=== PATIENT | male | born 1950 | race Caucasian/White ===

== ENCOUNTER → 2016-11-12 10:04 | Outpatient (CLI) | payer MEDICARE, MEDICAID ==
[2016-06-18 14:33] VITALS: BMI 34.9
[~2016-11-12 10:04] MED LIST: ENULOSE10 G/15 ML PO
[2016-11-12 11:03] LABS: ALBUMIN 3.1 g/dL (3.4-5.0); BILIRUBIN - DIRECT 0.22 mg/dL (0.00-0.30); BILIRUBIN - INDIRECT 0.62 mg/dL (0.00-1.00); BILIRUBIN - TOTAL 0.84 mg/dL (0.2-1.3); PROTEIN - SERUM 6.7 g/dL (6.4-8.2)
[2016-11-12 11:10] LABS: BASOPHILS 0.4 % (0.0-2.0); EOSINOPHILS 1.9 % (0-7); HEMATOCRIT 38.3 % (42.0-54.0); HEMOGLOBIN 13.3 g/dL (13.5-17.5); IMMATURE GRANULOCYTES 0.2 % (0-5); LYMPHOCYTES 46.9 % (15-50); MCH 30.7 pg (26.0-34.0); MCHC 34.7 g/dL (31.0-37.0); MCV 88.5 fL (80.0-100.0); MEAN PLATELET VOLUME 11.6 fL (7.4-10.4); MONOCYTES 16.2 % (2-11); NEUTROPHILS 34.4 % (40-80); PLATELET COUNT 97 10x3/uL (130-400); RBC 4.33 10x6/uL (4.20-6.10); RDW 14.2 % (11.5-14.5); WBC 4.8 10x3/uL (4.8-10.8)
[2016-11-12 11:42] LABS: PLATELET ESTIMATE DECREASED
[2016-11-16 09:09] LABS: HCVGENO - HEP C QUANT HCV Not Detected IU/mL (())
== END | disposition home or self-care (01) ==
LOC: D.LAB 11-11 11:15
PROVIDERS: Internal Medicine Gastroenterology
DX: B18.2 Chronic viral hepatitis C (principal)

== ENCOUNTER 2017-02-17 07:55 | Outpatient (CLI) | payer MEDICARE, MEDICAID ==
[~2017-02-17] VITALS: Ht 180.3 cm; Wt 102.3 kg
--- NOTE | ~2017-02-17 | HEMODYNAMI ---
PATIENT:KYE VILLAFUERTE MEDICAL RECORD: [id number] : 54 LOCATION:D.OPS ADMISSION DATE: 02/17/17 Generatedon:02/17/201713:51 Patient name: KYE VILLAFUERTE Patient #: [id number] SSN: : 1950 Date of study: 02/17/2017 Page: Of Hemodynamic Procedure Report Patient Data Patient Demographics Procedure consent was obtained First Name: KYE Gender: Male Last Name: CHRISTO : 1950 [facility] Initial: ROMAN Age: 66 year(s) Patient #: [id number] Race: Unknown Additional ID: [id number] Contact details Address: [address] [place] [address] [place] State: [place] City: [place] Zip code: [address] Admission Admission Data Admission Date: 02/17/2017 Admission Time: 7:55 Weight (lbs.): 225 Weight (kg.): 102.06 Procedure Procedure Types Cath Procedure Peripheral Cath Diagnostic Procedure Cath Peripheral Liver TIPSS Revision Procedure Description Procedure Date Procedure Date: 02/17/2017 Procedure Start Time: 13:25 Procedure Staff Name Function Jeanette Guzman RT Healthcare Translator Jeanette Guzman RT Monitor Timothy Balbuena RT Scrub Neto Wells MD Performing Physician Gen De La Torre CRNA Additional personnel Princess Anaya RN Nurse Procedure Data Cath Procedure Fluoroscopy Diagnostic fluoroscopy Total fluoroscopy Time: 2.9 time: 2.9 min min Diagnostic fluoroscopy Total fluoroscopy dose: 517 dose: 517 mGy mGy Contrast Material Contrast Material Type Amount (ml) Isovue 300 75 Diagnostic catheters Device Type Used For End Catheter Placement Merit UHF Pigtail VESSEL SIZING 5Fr 65CM catheter Hemodynamics Rest Heart Rate: 50 (bpm) Pressure Samples Time Site Value (mmHg) Purpose Heart Use Rate(bpm) 13:40 Portal (17) Snapshot 50 13:43 RA 10/9(8) Snapshot 50 Snapshots Pre Cath Intra NCS Post Cath Procedure Log Time Note 12:34:35 Patient Weight : 225 kg 12:36:23 TUBING, CONTRAST INJCTN HI PRES opened to sterile field. 12:36:24 TUBING, CONTRAST INJCTN HI PRES opened to sterile field. 12:36:25 Terumo ANGLE 260cm glide wire opened to sterile field. 12:36:25 Cook OCAMPO 260 guide wire opened to sterile field. 12:36:26 PERCUTANEOUS ENTRY 19GA needle opened to sterile field. 12:36:30 KIT, TRANSJUGULAR LIVER ACCESS R opened to sterile field. 12:36:35 Use device set IR Diagnostic 12:36:36 Sterile Angiographic Pack opened to sterile field. 12:36:37 Bag Decanter opened to sterile field. 12:36:38 Acist Manifold opened to sterile field. 12:36:39 Acist Hand Control opened to sterile field. 12:36:40 Acist Syringe opened to sterile field. 12:42:27 Time tracking: Regular hours 12:44:37 Patient received from Outpatients to IR Alert and oriented. Tansferred to table in Supine position. 12:44:42 Correct patient and procedure confirmed by team. 12:44:46 Signed procedure consent form obtained from patient. 12:44:48 - 12:44:57 H&P Date Dictated: 02/17/2017 Within 30 days and on chart.. 12:44:59 Pre-procedure instructions explained to patient. 12:45:00 Pre-op teaching completed and patient verbalized understanding. 12:45:06 Family unavailable. 12:45:08 Patient NPO since Midnight. 12:45:20 - 12:45:51 see anesthesia notes for monitoring of patient during procedure 13:22:08 Physician arrived 13:22:31 Physical assessment completed. ASA score P 3 - A patient with severe systemic disease as per Gen De La Torre HUMAN FACTORS ERGONOMIST. 13:22:37 --------ALL STOP TIME OUT------ 13:22:38 Final Timeout: patient, procedure, and site verified with staff and physician. All members of the team are in agreement. 13:22:44 Sedation plan: General Anesthesia General Anesthesia 13:25:29 Procedure started. 13:25:30 Full Disclosure recording started 13:25:46 Local anesthetic to right IJ vein with Lidocaine 1% by Neto Wells MD.INITIAL ACCESS ONLY 13:31:14 Terumo 5FR Emergency Department Manager H1 100CM glide catheter opened to sterile field. 13:34:10 A Bookioo F Pigtail VESSEL SIZING 5Fr 65CM catheter was advanced over the wire and used for . 13:39:21 Zero performed for pressure channel P1 13:39:33 Zero performed for pressure channel P1 13:43:17 Zero performed for pressure channel P1 13:44:06 Procedure ended.(Physican Out) 13:46:15 Procedure and supply charges have been captured, reviewed, submitted an d are correct. 13:47:43 Full Disclosure recording stopped 13:50:31 Fluoroscopy time 02.90 minutes. 13:50:45 Fluoroscopy dose: 517 mGy 13:50:45 Flurop Dose total: 517 13:50:52 Contrast amount:Isovue 300 75ml. Device Usage Item Name Manufacture Quantity Catalog Hospital Part Current Minimal Lot# / Number Charge Number Stock Stock Serial# Code TUBING, Merit 2 [id number] 5 CONTRAST Medical INJCTN HI PRES Cook OCAMPO [employer] Medical 1 [id number] 351875 [id number] 5 [id number] 260 guide wire Terumo ANGLE Terumo 1 [id number] 194034 204910 018941 5 260cm glide wire PERCUTANEOUS [employer] 1 [id number] 798935 259336 5 ENTRY 19GA needle KIT, [employer] 1 [id number] 391407 [id number] 5 [id number] TRANSJUGULAR LIVER ACCESS R Sterile Cardinal 1 [id number] 213335 746113 5 Angiographic Health Pack Bag Decanter Microtek 1 2001S 869747 97796 797492 [employer] Acist Acist 1 43060 308731 029617 632513 5 [employer] Acist Hand Acist 1 26759 294775 047222 040650 5 Control [employer] Inc Acist Acist 1 28455 995780 173760 640675 20 Syringe [employer] Inc Terumo 5FR [place] 1 CG513 418449 069950 5 [facility] [place] H1 100CM glide catheter Merit [facility] Merit 1 [id number] 537052 591065 5 Pigtail Medical VESSEL SIZING 5Fr 65CM catheter Signature Audit [place] Stage Time Signature Unsigned Intra-Procedure 02/17/2017 Jeanette Aguirre [facility] RT 1:47:37 PM RT(R) (R) (CV) 02/17/2017 1:49:54 PM Intra-Procedure 02/17/2017 Jeanette Guzman 1:51:07 PM RT(R) Signatures Monitor : Jeanette Guzman RT Signature : Date : Time : [id number] [place] [address]
[2017-02-17 10:46] LABS: BASOPHILS 0.7 % (0-2); HEMATOCRIT 40.9 % (42.0-54.0); HEMOGLOBIN 14.1 g/dL (13.5-17.5); LYMPHOCYTES 41.5 % (15-50); MCH 30.9 pg (26.0-34.0); MCHC 34.5 g/dL (31.0-37.0); MCV 89.5 fL (80.0-100.0); NEUTROPHILS 46.8 % (40-80); PLATELET COUNT 93 10x3/uL (130-400); RBC 4.57 10x6/uL (4.20-6.10); RDW 13.6 % (11.5-14.5); WBC 4.6 10x3/uL (4.8-10.8)
[2017-02-17 11:08] LABS: APTT 33.8 SECONDS (22.8-39.4); INR 1.34 (0.85-1.17); PROTIME 16.5 SECONDS (11.6-15.0)
[2017-02-17 11:09] LABS: ALBUMIN 3.3 g/dL (3.4-5.0); ALKALINE PHOSPHATASE 77 U/L (46-116); ALT (SGPT) 32 U/L (10-68); BILIRUBIN - DIRECT 0.16 mg/dL (0.00-0.30); BILIRUBIN - TOTAL 1.06 mg/dL (0.2-1.3); CALC OSMOLALITY 280 mosm/kg (275-300); CALCIUM 8.9 mg/dL (8.5-10.1); CARBON DIOXIDE 25.4 mmol/L (21.0-32.0); CHLORIDE - SERUM 108 mmol/L (98-107); GLUCOSE 95 mg/dL (74-106); PROTEIN - SERUM 7.1 g/dL (6.4-8.2); SODIUM 142 mmol/L (136-145); UREA NITROGEN 8 mg/dL (7-18); eGFR NON AFRICAN AMERICAN 80 mL/min (90-120)
[2017-02-17 11:10] VITALS: BP 100/66; Ht 180.3 cm; Wt 102.3 kg
== END 2017-02-17 18:00 | disposition home or self-care (01) ==
LOC: D.US 07:55 → D.OPS 07:55 → D.US 08:30 → D.OPS 18:00
PROVIDERS: Specialist
DX: K74.69 Other cirrhosis of liver (principal); B19.20 Unspecified viral hepatitis C without hepatic coma

== ENCOUNTER → 2017-06-07 07:51 | Outpatient (CLI) | payer MEDICARE, MEDICAID ==
[2017-02-17 11:10] VITALS: BMI 31.4
== END | disposition home or self-care (01) ==
LOC: D.US 07:51
DX: R93.3 Abnormal findings on diagnostic imaging of other parts of digestive tract (principal)

== ENCOUNTER → 2017-09-03 08:51 | Outpatient (CLI) | payer MEDICARE, MEDICAID ==
[2017-02-17 11:10] VITALS: BMI 31.4
== END | disposition home or self-care (01) ==
LOC: D.US 08:51
DX: K74.60 Unspecified cirrhosis of liver (principal)

== ENCOUNTER → 2017-11-23 09:47 | Outpatient (CLI) | payer MEDICARE, MEDICAID ==
[2017-02-17 11:10] VITALS: BMI 31.4
[2017-11-23 11:08] LABS: ALBUMIN 3.5 g/dL (3.4-5.0); BILIRUBIN - DIRECT 0.16 mg/dL (0.00-0.30); BILIRUBIN - INDIRECT 0.74 mg/dL (0.00-1.00); BILIRUBIN - TOTAL 0.9 mg/dL (0.2-1.3); PROTEIN - SERUM 7.4 g/dL (6.4-8.2)
== END | disposition home or self-care (01) ==
LOC: D.US 11-22 10:00 → D.LAB 11-22 10:45 → D.US 09:47
PROVIDERS: Internal Medicine Gastroenterology
DX: K74.60 Unspecified cirrhosis of liver (principal); R93.8 Abnormal findings on diagnostic imaging of other specified body structures; R18.8 Other ascites

== ENCOUNTER → 2018-03-10 08:50 | Outpatient (CLI) | payer MEDICARE, MEDICAID ==
[2017-02-17 11:10] VITALS: BMI 31.4
[~2018-03-10 08:50] MED LIST changes: +ACETAMINOPHEN500 M1 PO; +CHRONULAC30 ML PO; +MIRALAX17 GM PO; +PROTONIX40 MG PO; +XIFAXAN550 MG PO
== END | disposition home or self-care (01) ==
LOC: D.US 08:50
DX: K74.60 Unspecified cirrhosis of liver (principal); B19.20 Unspecified viral hepatitis C without hepatic coma

== ENCOUNTER 2018-04-11 12:01 | Inpatient (IN) | payer MEDICARE, MEDICAID ==
[~2018-04-11] VITALS: Ht 180.3 cm; Wt 100.2 kg
--- NOTE | ~2018-04-11 | MORECARE ---
CASE MANAGEMENT DISCHARGE SUMMARY PATIENT: KYE VILLAFUERTE UNIT: [id number] ADM DATE: 04/11/18 AGE: 67 : 54 SEX: M ROOM/BED: D[facility] AUTHOR: BENJAMIN, SPAR FINISHER PHYSICIAN: REFERRING PHYSICIAN: JJ HUYNH MD DATE OF SERVICE: 04/11/18 Discharge Plan Patient Name: KYE VILLAFUERTE [facility] : 1950 Planned Disposition: Home Anticipated Discharge Date: 04/15/18 Discharge Date: Expected LOS: 4 Initial Reviewer: [email or web address] Initial Review Date: 04/14/2018 Generated: 04/14/18 7:19 pm DCPIA - Discharge Planning Initial Assessment Updated by [email or web address]: Shaw Bullock on 04/14/18 6:17 pm * Is the patient Alert and Oriented? Yes * How many steps to enterexit or inside your home? 1 FLIGHT * PCP DR. COTA * Pharmacy [facility] * Preadmission Environment Home Alone * ADLs Independent * Equipment None * Other Equipment NO MEDICAL EQUIPMENT PROVIDER PREFERENCE * List name and contact numbers for known caregivers / representatives who currently or will assist patient after discharge: MELANIE VILLAFUERTE, DAUGHTER, * Verbal permission to speak to the caregivers and representatives has been obtained from the patient. Yes * Community resources currently utilized None * Please name any agencies selected above. NONE * Additional services required to return to the preadmission environment? No * Can the patient safely return to the preadmission environment? Yes * Has this patient been hospitalized within the prior 30 days at any hospital? No Patient Name: KYE VILLAFUERTE Page [phone] All edits/amendments must be made on the electronic document DICTATION DATE: 04/14/181817 RETRIMMER: 04/14/181817 RPT#: [id number] DC DATE: STATUS: ADM IN [facility] [address] [place] [address] END OF REPORT
[~2018-04-11 12:01] MED LIST changes: -ACETAMINOPHEN500 M1 PO; -CHRONULAC30 ML PO; -MIRALAX17 GM PO; -PROTONIX40 MG PO; -XIFAXAN550 MG PO
[2018-04-11 12:38] LABS: BASOPHILS 0.2 % (0-2); EOSINOPHILS 0.1 % (0-7); HEMATOCRIT 40.2 % (42.0-54.0); IMMATURE GRANULOCYTES 0.2 % (0-5); LYMPHOCYTES 8.1 % (15-50); MCH 31.2 pg (26.0-34.0); MCHC 34.8 g/dL (31.0-37.0); MCV 89.5 fL (80.0-100.0); MEAN PLATELET VOLUME 11.6 fL (7.4-10.4); MONOCYTES 10.2 % (2-11); NEUTROPHILS 81.2 % (40-80); PLATELET COUNT 103 10x3/uL (130-400); RBC 4.49 10x6/uL (4.20-6.10); RDW 13.5 % (11.5-14.5); WBC 8.1 10x3/uL (4.8-10.8)
[2018-04-11 12:55] LABS: ALBUMIN 4.1 g/dL (3.4-5.0); ALKALINE PHOSPHATASE 79 U/L (46-116); ALT (SGPT) 51 U/L (10-68); BILIRUBIN - TOTAL 1.52 mg/dL (0.2-1.3); CALC OSMOLALITY 283 mosm/kg (275-300); CALCIUM 9.3 mg/dL (8.5-10.1); CARBON DIOXIDE 24.3 mmol/L (21.0-32.0); CHLORIDE - SERUM 106 mmol/L (98-107); CREATININE - SERUM 2.2 mg/dL (0.6-1.3); GLUCOSE 88 mg/dL (74-106); POTASSIUM - SERUM 4.3 mmol/L (3.5-5.1); PROTEIN - SERUM 7.5 g/dL (6.4-8.2); SODIUM 141 mmol/L (136-145); UREA NITROGEN 25 mg/dL (7-18); eGFR NON AFRICAN AMERICAN 32 mL/min (90-120)
[2018-04-11 13:03] LABS: INR 1.46 (0.85-1.17)
[2018-04-11 13:13] LABS: D-DIMER-QUANTITATIVE 1.3 ug/mLFEU (0.20-0.54)
[2018-04-11 13:20] LABS: C-REACTIVE PROTEIN 4.1 mg/dL (0.0-0.9); CKMB 41.9 U/L (0.0-3.6); CREATINE KINASE 3686 UL (21-232); LIPASE 85 U/L (73-393); MAGNESIUM - SERUM 2.2 mg/dL (1.8-2.4); PRO BNP 87 pg/mL (0-125); THYROID STIMULATING HORMONE 14.45 uIU/mL (0.36-3.74)
[2018-04-11 13:34] LABS: TROPONIN-I 0.031 ng/mL (0.000-0.060)
[2018-04-11 14:54] LABS: APPEARANCE HAZY (CLEAR); BILIRUBIN NEGATIVE (NEGATIVE); COLOR DK YELLOW (YELLOW); GLUCOSE NEGATIVE (NEGATIVE); KETONE NEGATIVE (NEGATIVE); NITRITE NEGATIVE (NEGATIVE); PROTEIN NEGATIVE (NEGATIVE); UROBILINOGEN NORMAL (NORMAL)
[2018-04-11 14:56] LABS: BACTERIA MODERATE /hpf (NONE SEEN); CALCIUM OXALATE CRYSTALS 0-5 /hpf (NONE SEEN); EPITHELIAL CELLS 0-5 /hpf (0-5); MUCUS >1+ /lpf (NONE SEEN); RED CELLS - URINE 0-5 /hpf (0-5); WHITE CELLS - URINE 0-5 /hpf (0-5)
[2018-04-11 14:59] LABS: UDS - AMPHET NEGATIVE QUAL (NEGATIVE); UDS - BARB NEGATIVE QUAL (NEGATIVE); UDS - BENZO NEGATIVE QUAL (NEGATIVE); UDS - COCAINE NEGATIVE QUAL (NEGATIVE); UDS - OPIATE POSITIVE QUAL (NEGATIVE); UDS - PCP NEGATIVE QUAL (NEGATIVE); UDS - THC NEGATIVE QUAL (NEGATIVE)
[2018-04-11] MEDS ORDERED: ACETAMINOPHEN500 M1 PO (16:46)
[2018-04-11 16:58] VITALS: BP 143/72; BMI 31.4
[2018-04-11 20:05] VITALS: BP 111/68
[2018-04-12 01:29] VITALS: BP 129/61
[2018-04-12 05:35] VITALS: BP 113/59
[2018-04-12 05:57] LABS: BASOPHILS 0.2 % (0-2); EOSINOPHILS 1.5 % (0-7); HEMATOCRIT 34.8 % (42.0-54.0); LYMPHOCYTES 29.1 % (15-50); MCH 30.9 pg (26.0-34.0); MCHC 34.5 g/dL (31.0-37.0); MCV 89.7 fL (80.0-100.0); MEAN PLATELET VOLUME 11.6 fL (7.4-10.4); MONOCYTES 13.8 % (2-11); NEUTROPHILS 55.4 % (40-80); PLATELET COUNT 93 10x3/uL (130-400); RBC 3.88 10x6/uL (4.20-6.10); RDW 13.9 % (11.5-14.5)
[2018-04-12 06:10] LABS: WBC 4.7 10x3/uL (4.8-10.8)
[2018-04-12 06:29] LABS: BILIRUBIN - TOTAL 1.26 mg/dL (0.2-1.3); CARBON DIOXIDE 27.1 mmol/L (21.0-32.0); PROTEIN - SERUM 6.1 g/dL (6.4-8.2)
[2018-04-12 06:33] LABS: ANION GAP 9.1 mmol/L (8-16); CREATININE - SERUM 1.2 mg/dL (0.6-1.3); POTASSIUM - SERUM 3.2 mmol/L (3.5-5.1)
[2018-04-12 11:36] VITALS: BP 112/54
[2018-04-12 16:12] LABS: % SATURATION 51 % (15-55); IRON 110 ug/dl (35-150); TOTAL IRON BIND CAPACITY 212 ug/dl (260-445); UNSAT IRON BIND CAPACITY 102 ug/dl (150-375)
[2018-04-12 16:23] VITALS: BP 120/66
[2018-04-12 20:30] VITALS: BP 114/63
[2018-04-13 01:26] VITALS: BP 114/68
[2018-04-13 05:39] VITALS: BP 131/67; BP 132/67
[2018-04-13 05:56] LABS: BASOPHILS 0.2 % (0-2); HEMATOCRIT 36.1 % (42.0-54.0); HEMOGLOBIN 12.5 g/dL (13.5-17.5); IMMATURE GRANULOCYTES 0.2 % (0-5); LYMPHOCYTES 40.1 % (15-50); MCH 30.8 pg (26.0-34.0); MCHC 34.6 g/dL (31.0-37.0); MCV 88.9 fL (80.0-100.0); MONOCYTES 14.1 % (2-11); NEUTROPHILS 43.4 % (40-80); PLATELET COUNT 90 10x3/uL (130-400); RBC 4.06 10x6/uL (4.20-6.10); RDW 13.7 % (11.5-14.5)
[2018-04-13 06:25] LABS: ALBUMIN 2.8 g/dL (3.4-5.0); ALKALINE PHOSPHATASE 55 U/L (46-116); ALT (SGPT) 83 U/L (10-68); BILIRUBIN - TOTAL 1.14 mg/dL (0.2-1.3); CALC OSMOLALITY 281 mosm/kg (275-300); CALCIUM 7.9 mg/dL (8.5-10.1); CARBON DIOXIDE 26.1 mmol/L (21.0-32.0); CHLORIDE - SERUM 109 mmol/L (98-107); CREATININE - SERUM 0.9 mg/dL (0.6-1.3); GLUCOSE 93 mg/dL (74-106); POTASSIUM - SERUM 3.4 mmol/L (3.5-5.1); PROTEIN - SERUM 6.1 g/dL (6.4-8.2); SODIUM 142 mmol/L (136-145); UREA NITROGEN 11 mg/dL (7-18); eGFR NON AFRICAN AMERICAN 90 mL/min (90-120)
[2018-04-13 07:45] VITALS: BP 105/60
[2018-04-13 11:22] VITALS: BP 109/60
[2018-04-13 14:35] VITALS: Ht 180.3 cm; Wt 100.2 kg
[2018-04-13 15:40] VITALS: BP 113/63
[2018-04-13 20:17] VITALS: BP 108/56
[2018-04-14 00:58] VITALS: BP 131/75
[2018-04-14 05:16] VITALS: BP 109/56
[2018-04-14 05:16] LABS: BASOPHILS 0.2 % (0-2); EOSINOPHILS 2.1 % (0-7); HEMATOCRIT 36.6 % (42.0-54.0); HEMOGLOBIN 12.8 g/dL (13.5-17.5); LYMPHOCYTES 32.5 % (15-50); MCH 31.4 pg (26.0-34.0); MCV 89.7 fL (80.0-100.0); NEUTROPHILS 53.2 % (40-80); PLATELET COUNT 99 10x3/uL (130-400); RBC 4.08 10x6/uL (4.20-6.10); RDW 13.6 % (11.5-14.5); WBC 4.7 10x3/uL (4.8-10.8)
[2018-04-14 05:29] LABS: INR 1.35 (0.85-1.17); PROTIME 16.2 SECONDS (11.6-15.0)
[2018-04-14 05:34] LABS: ALBUMIN 2.8 g/dL (3.4-5.0); ALKALINE PHOSPHATASE 53 U/L (46-116); ALT (SGPT) 85 U/L (10-68); BILIRUBIN - TOTAL 0.78 mg/dL (0.2-1.3); CALC OSMOLALITY 280 mosm/kg (275-300); CALCIUM 7.7 mg/dL (8.5-10.1); CHLORIDE - SERUM 109 mmol/L (98-107); CREATININE - SERUM 0.9 mg/dL (0.6-1.3); GLUCOSE 90 mg/dL (74-106); POTASSIUM - SERUM 3.4 mmol/L (3.5-5.1); PROTEIN - SERUM 5.9 g/dL (6.4-8.2); SODIUM 142 mmol/L (136-145); eGFR NON AFRICAN AMERICAN 90 mL/min (90-120)
[2018-04-14 05:39] LABS: UREA NITROGEN 7 mg/dL (7-18)
[2018-04-14 07:46] VITALS: BP 113/54
[2018-04-14 08:21] LABS: FOLATE (FOLIC ACID) - SERUM 13.2 ng/mL (>3.0)
[2018-04-14 11:43] VITALS: BP 104/56
[2018-04-14 15:29] VITALS: BP 115/71
[2018-04-14 20:00] VITALS: BP 146/68
[2018-04-15 04:00] VITALS: BP 111/71
[2018-04-15 05:22] LABS: BASOPHILS 0.4 % (0-2); EOSINOPHILS 2.8 % (0-7); HEMATOCRIT 39.6 % (42.0-54.0); HEMOGLOBIN 13.6 g/dL (13.5-17.5); IMMATURE GRANULOCYTES 0.2 % (0-5); LYMPHOCYTES 32.6 % (15-50); MCH 30.8 pg (26.0-34.0); MCHC 34.3 g/dL (31.0-37.0); MCV 89.8 fL (80.0-100.0); MEAN PLATELET VOLUME 11.9 fL (7.4-10.4); MONOCYTES 12.3 % (2-11); NEUTROPHILS 51.7 % (40-80); PLATELET COUNT 106 10x3/uL (130-400); RBC 4.41 10x6/uL (4.20-6.10); RDW 13.7 % (11.5-14.5); WBC 4.6 10x3/uL (4.8-10.8)
[2018-04-15 05:30] LABS: ALBUMIN 2.9 g/dL (3.4-5.0); ALKALINE PHOSPHATASE 58 U/L (46-116); ALT (SGPT) 84 U/L (10-68); BILIRUBIN - TOTAL 0.99 mg/dL (0.2-1.3); CALC OSMOLALITY 280 mosm/kg (275-300); CHLORIDE - SERUM 108 mmol/L (98-107); CREATININE - SERUM 0.9 mg/dL (0.6-1.3); GLUCOSE 95 mg/dL (74-106); POTASSIUM - SERUM 3.8 mmol/L (3.5-5.1); PROTEIN - SERUM 6.2 g/dL (6.4-8.2); SODIUM 142 mmol/L (136-145); UREA NITROGEN 6 mg/dL (7-18); eGFR NON AFRICAN AMERICAN 90 mL/min (90-120)
[2018-04-15 07:38] VITALS: BP 122/80
[2018-04-15 11:18] VITALS: BP 105/61
[2018-04-15 15:45] VITALS: BP 119/60
[2018-04-15 20:32] VITALS: BP 137/94
[2018-04-16 00:19] VITALS: BP 110/59
[2018-04-16 04:44] VITALS: BP 115/72
[2018-04-16 05:37] LABS: BASOPHILS 0.4 % (0-2); EOSINOPHILS 2.9 % (0-7); HEMATOCRIT 39.5 % (42.0-54.0); HEMOGLOBIN 13.8 g/dL (13.5-17.5); IMMATURE GRANULOCYTES 0.2 % (0-5); LYMPHOCYTES 30.1 % (15-50); MCH 31.4 pg (26.0-34.0); MCHC 34.9 g/dL (31.0-37.0); MEAN PLATELET VOLUME 11.3 fL (7.4-10.4); MONOCYTES 12.1 % (2-11); NEUTROPHILS 54.3 % (40-80); PLATELET COUNT 102 10x3/uL (130-400); RBC 4.39 10x6/uL (4.20-6.10); RDW 13.7 % (11.5-14.5); WBC 5.2 10x3/uL (4.8-10.8)
[2018-04-16 06:20] LABS: ALBUMIN 2.8 g/dL (3.4-5.0); ANION GAP 9.3 mmol/L (8-16); BILIRUBIN - TOTAL 0.59 mg/dL (0.2-1.3); CALCIUM 8.2 mg/dL (8.5-10.1); CARBON DIOXIDE 27.3 mmol/L (21.0-32.0); CREATININE - SERUM 1.1 mg/dL (0.6-1.3); POTASSIUM - SERUM 3.6 mmol/L (3.5-5.1); PROTEIN - SERUM 6.3 g/dL (6.4-8.2)
[2018-04-16 08:30] VITALS: BP 123/68
[2018-04-16] MEDS ORDERED: XIFAXAN550 MG PO (11:17)
[2018-04-16] MEDS ORDERED: MIRALAX17 GM PO (11:18)
[2018-04-16] MEDS ORDERED: PROTONIX40 MG PO (11:18)
[2018-04-16] MEDS ORDERED: CHRONULAC30 ML PO (11:18)
[2018-04-16 11:36] VITALS: BP 122/75
== END 2018-04-16 12:52 | disposition home or self-care (01) | DRG 442 ==
LOC: D.ER 12:01 → D.M2 15:48
PROVIDERS: Family Medicine; Internal Medicine Nephrology
DX: K72.90 Hepatic failure, unspecified without coma (principal); N17.9 Acute kidney failure, unspecified; D61.818 Other pancytopenia; N39.0 Urinary tract infection, site not specified; K70.30 Alcoholic cirrhosis of liver without ascites; E87.6 Hypokalemia; G93.89 Other specified disorders of brain